=== PATIENT | female | born 1950 | race Caucasian/White ===

== ENCOUNTER → 2018-05-05 13:59 | Outpatient (CLI) | payer OTHER, MEDICARE, SELFPAY ==
--- NOTE | 2018-05-05 | DI.RAD.S_ITS ---
PROCEDURE: XR HIP W PEL IF DONE RT 2V INDICATIONS: CHRONIC PAIN RIGHT KNEE TECHNIQUE: AP pelvis with lateral view(s) of the right hip(s). COMPARISON: None. FINDINGS: Bones: No fractures or dislocations. Lower lumbar degenerative disease. Mild bilateral hip joint degeneration. Pelvic ring appears intact. No suspicious bony lesions. Soft tissues: The visualized bowel gas pattern is normal. No suspicious soft tissue calcifications. IMPRESSION: Mild bilateral hip degeneration. Lower lumbar degenerative disc disease. Dictated by: Roscoe Jara M.D. on 05/05/2018 at 16:04 Approved by: Roscoe Jara M.D. on 05/05/2018 at 16:06
--- NOTE | 2018-05-05 | DI.RAD.S_ITS ---
PROCEDURE: XR KNEE RT 3V INDICATIONS: R KNEE PAIN TECHNIQUE: 3 views of the knee were acquired. COMPARISON: None. FINDINGS: Bones: No fractures or dislocations. No suspicious bony lesions. Superior patellar spurring. Diffuse osteophyte formation and moderate narrowing of the medial joint space. Soft tissues: No joint effusion. No suspicious soft tissue calcifications. IMPRESSION: Moderate right knee joint degeneration Dictated by: Roscoe Jara M.D. on 05/05/2018 at 16:06 Approved by: Roscoe Jara M.D. on 05/05/2018 at 16:11
--- NOTE | 2018-05-05 | DI.RAD.S_ITS ---
PROCEDURE: XR SHOULDER RT MIN 2V INDICATIONS: CHRONIC RIGHT SHOULDER PAIN TECHNIQUE: 3 views of the shoulder were acquired. COMPARISON: None. FINDINGS: Bones: No fractures or dislocations. No suspicious bony lesions. Visualized ribs appear intact. Severe AC joint degeneration. There is glenohumeral degenerative spurring Soft tissues: No suspicious soft tissue calcifications. IMPRESSION: Right shoulder joint degeneration Dictated by: Roscoe Jara M.D. on 05/05/2018 at 15:57 Approved by: Roscoe Jara M.D. on 05/05/2018 at 16:03
== END ==
PROVIDERS: Family Provider Family Medicine; PCP Family Medicine; Visit Provider Family Medicine
DX: M25.511 Pain in right shoulder (principal); M25.561 Pain in right knee; M19.011 Primary osteoarthritis, right shoulder; G89.29 Other chronic pain; M16.0 Bilateral primary osteoarthritis of hip; M51.36 Other intervertebral disc degeneration, lumbar region; M17.11 Unilateral primary osteoarthritis, right knee
CPT/HCPCS: 73030; 73502; 73562

== ENCOUNTER 2018-08-07 09:21 | Emergency (ER) | payer OTHER, MEDICARE, SELFPAY ==
[2018-08-07 09:30] VITALS: BP 161/80; PULSE 60; RESP 18; TEMP 35.9; O2SAT 97; BMI 30.9
--- NOTE | 2018-08-07 10:41 | DI.RAD.S_ITS ---
PROCEDURE: XR CHEST 2V INDICATIONS: right rib pain, fall concern for fracture rib 8-9 range TECHNIQUE: 2 views of the chest were acquired. COMPARISON: None. FINDINGS: Surgical changes and devices: None. Lungs and pleura: Lungs are clear. No pleural effusions or pneumothorax. Mediastinum: Mediastinal contours are normal. Heart size is normal. Bones and chest wall: No suspicious bony abnormalities. Soft tissues appear unremarkable. IMPRESSION: Normal chest. Dictated by: Lori Agustin M.D. on 08/07/2018 at 12:11 Approved by: Lori Agustin M.D. on 08/07/2018 at 12:12
--- NOTE | 2018-08-07 10:41 | ED.FALL ---
HPI - Fall General Chief Complaint: Fall Stated Complaint: FELL RIGHT SIDE PAIN X7 DAYS Time Seen by Provider: 08/07/18 10:31 Source: patient and family (Granddaughter) Mode of arrival: ambulatory Limitations: no limitations History of Present Illness HPI Narrative: This is a 68-year-old female who states that about a week ago she was outside feeding her chickens when she slipped on some rain mixed with snow. Patient states she slipped backwards and fell onto her right side. She sort of scraped her arm against the [place]. Patient states she did hit her head, she has not had any neck or back pain. She does have some bruising and a little bit of puffiness on her right lateral rib area. Patient states she still pretty tender particularly with movement. She states her arm is bruised up but no other injuries. She is able to move it but raising her arm twisting bending or moving her chest in any way is uncomfortable. She tried to follow up with the physicians on [facility] where she lives but they were unable to follow with her. She cut the [place] over here today for evaluation. 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 She has been able to continue these activities. 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 She takes levothyroxine daily. She states she does not take an aspirin or any blood thinners daily. Related Data Home Medications Medication Instructions Recorded Confirmed ASPIRIN CHEW - 324 mg PO Q DAY #0 04/03/06 (ASPIRIN) MULTIVITAMIN (Multivitamin 0 PO * [place] DOSE/FREQUENCY #0 04/03/06 -) [BP MED] #0 04/11/16 levothyroxine 150 mcg PO QDAY #0 04/11/16 Allergies Allergy/AdvReac Type Severity Reaction Status Date / Time Penicillins [PENICILLINS] Allergy Severe STOPS Unverified 09/30/17 11:50 BREATHING Review of Systems Review of Systems ROS Unobtainable: All systems reviewed & are unremarkable except as noted in HPI and below Constitutional Denies headache(s) ENT Ears, Nose, Mouth, and Throat: Denies headache(s) and Denies neck pain Cardiovascular Reports chest pain (right lateral rib pain), Denies syncope, Denies edema, Denies dyspnea and Denies dyspnea on exertion Respiratory Denies chest congestion, Denies hemoptysis, Denies excessive phlegm production, Reports pain on inspiration (with very deep), Reports pain with cough, Denies dyspnea, Denies dyspnea on exertion and Denies wheezing Gastrointestinal Gastrointestinal: Denies abdominal pain, Denies change in bowel habits, Denies diarrhea, Denies nausea and Denies vomiting Musculoskeletal Denies back pain, Denies muscle weakness, Denies neck pain, Denies numbness, Denies tingling and Reports other Integumentary/Breasts Reports unusual bruising (arm) Neurologic Denies syncope, Denies headache(s), Denies numbness, Denies tingling and Denies other (LOC) Allergic/Immunologic Denies wheezing Exam Narrative Exam Narrative: GEN: Patient appears in mild distress. With movement HEAD: No evidence of trauma, no raccoon/Jang sign. NECK: Nontender, painless range of motion, trachea midline Negative Nexus criteria, there is no mid line tenderness, distracting injury, altered mental status, neuro deficit, recent EtOH. EYES: PERRLA, EOMI ENT: External inspection normal, trachea is midline, airway is normal and with normal occlusion, No bony tenderness RESP: Chest, patient has patient has point tenderness on her right lateral ribs 8-9 region, there is a corresponding area of ecchymosis that is approximately 3 cm in size, no hematoma is noted. Patient has a small secondary area of ecchymosis on the posterior back about 2 cm higher that is about 2 cm in size. Slightly tender but not to the same extent. and has symmetric movement,breath sounds are normal no crackles, wheezes or rales, patient is able to sit up in bed without much discomfort. CVS: Heart sounds are normal, no murmur noted, No JVD. ABG/GI: Nontender, soft, normal bowel sounds, no distention, no organomegaly NEURO: Oriented AOx3, neuro is grossly intact, sensation and motor is normal all 4 extremities moving, cranial nerves II through XII are intact, GCS is 15 PSYCH: Normal mood and affect SKIN: Intact, warm and dry, no crepitus and without decubitus BACK: No CVA tenderness, no vertebral tenderness, no step-off's, no crepitus EXT: Atraumatic, hips are nontender, no pedal edema, normal color and temperature, normal range of motion of extremities with normal tendon exam, 2+ pulses in all four extremities Initial Vital Signs Initial Vital Signs: Vital Signs Temperature 96.7 F L 08/07/18 09:30 Pulse Rate 60 08/07/18 09:30 Respiratory Rate 18 08/07/18 09:30 Blood Pressure 161/80 H 08/07/18 09:30 Pulse Oximetry 97 08/07/18 09:30 [facility] Medical History Hypothyroid (Acute) Social History Smoking Status: Never smoker Social History details: Lives on [facility], primary caregiver [facility] Smoking Status: Never smoker Course Orders Ordered: ED Orders 08/07/18 10:41 XR chest 2V Stat Vital Signs - 8 hr 08/07/18 09:30 08/07/18 11:23 Temperature 96.7 F L Pulse Rate 60 56 L Respiratory Rate 18 20 Blood Pressure 161/80 H 162/70 H Pulse Oximetry 97 98 MDM - Fall Imaging Data Chest x-ray: Attestation: I personally reviewed and interpreted this imaging study as follows: My impression: no acute fracture noted, no pnuemothorax. [facility] Narrative Medical decision making narrative: Patient does not have clear fracture noted on x-ray but she may have a nondisplaced rib fracture which is my suspicion with her point tenderness and localized breathing. Patient seems to be handling this well she is quite active. Was offered incentive spirometry but she defers at this time. Patient plans to use OTC pain medications. Discharge Plan Departure Patient Disposition: Home Clinical Impression: Closed rib fracture Discharge Date/Time: 08/07/18 11:23 Interventions: ED Discharge Assessment Last Done: 08/07/18 11:23 Instructions: DI for Rib Fracture Activity Restrictions/Additional Instructions: Follow up with primary care if her symptoms are not improving over the next several weeks. You may continue to take ibuprofen and/or Tylenol as needed for pain. You may take up to a 1000 mg of Tylenol every 8 hr as needed. You may take ibuprofen with this or instead of up to 600 mg every 6 hr. Use incentive spirometer hourly while awake. Return to the emergency department for fevers, new difficulty with breathing, rapidly spreading swelling or bruising on the chest, passing out, lightheadedness, persistent vomiting, sudden severe headaches or other new or concerning symptoms. Prescriptions: No Action ASPIRIN CHEW - (ASPIRIN) 324 mg PO Q DAY Qty: 0 RF: 0 MULTIVITAMIN (Multivitamin -) PO * DOSE/FREQUENCY Qty: 0 RF: 0 levothyroxine 112 MCG tablet 150 mcg PO QDAY Qty: 0 RF: 0 [BP MED] Qty: 0 RF: 0 Referrals: Daniel Kwok MD [Primary Care Provider] -
--- NOTE | 2018-08-07 10:48 | ED_ITS ---
HPI - Fall General Chief Complaint: Fall Stated Complaint: FELL RIGHT SIDE PAIN X7 DAYS Time Seen by Provider: 08/07/18 10:31 Source: patient and family (Granddaughter) Mode of arrival: ambulatory Limitations: no limitations History of Present Illness HPI Narrative: This is a 68-year-old female who states that about a week ago she was outside feeding her chickens when she slipped on some rain mixed with snow. Patient states she slipped backwards and fell onto her right side. She sort of scraped her arm against the [place]. Patient states she did hit her head, she has not had any neck or back pain. She does have some bruising and a little bit of puffiness on her right lateral rib area. Patient states she still pretty tender particularly with movement. She states her arm is bruised up but no other injuries. She is able to move it but raising her arm twisting bending or moving her chest in any way is uncomfortable. She tried to follow up with the physicians on [facility] where she lives but they were unable to follow with her. She cut the [place] over here today for evaluation. 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 She has been able to continue these activities. 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 She takes levothyroxine daily. She states she does not take an aspirin or any blood thinners daily. Related Data Home Medications Medication Instructions Recorded Confirmed ASPIRIN CHEW - 324 mg PO Q DAY #0 04/03/06 (ASPIRIN) MULTIVITAMIN (Multivitamin 0 PO * [place] DOSE/FREQUENCY #0 04/03/06 -) [BP MED] #0 04/11/16 levothyroxine 150 mcg PO QDAY #0 04/11/16 Allergies Allergy/AdvReac Type Severity Reaction Status Date / Time Penicillins [PENICILLINS] Allergy Severe STOPS Unverified 09/30/17 11:50 BREATHING Review of Systems Review of Systems ROS Unobtainable: All systems reviewed & are unremarkable except as noted in HPI and below Constitutional Denies headache(s) ENT Ears, Nose, Mouth, and Throat: Denies headache(s) and Denies neck pain Cardiovascular Reports chest pain (right lateral rib pain), Denies syncope, Denies edema, [place] es dyspnea and Denies dyspnea on exertion Respiratory Denies chest congestion, Denies hemoptysis, Denies excessive phlegm production, Reports pain on inspiration (with very deep), Reports pain with cough, Denies dyspnea, Denies dyspnea on exertion and Denies wheezing Gastrointestinal Gastrointestinal: Denies abdominal pain, Denies change in bowel habits, Denies diarrhea, Denies nausea and Denies vomiting Musculoskeletal Denies back pain, Denies muscle weakness, Denies neck pain, Denies numbness, Denies tingling and Reports other Integumentary/Breasts Reports unusual bruising (arm) Neurologic Denies syncope, Denies headache(s), Denies numbness, Denies tingling and Denies other (LOC) Allergic/Immunologic Denies wheezing Exam Narrative Exam Narrative: GEN: Patient appears in mild distress. With movement HEAD: No evidence of trauma, no raccoon/Jang sign. NECK: Nontender, painless range of motion, trachea midline Negative Nexus criteria, there is no mid line tenderness, distracting injury, altered mental status, neuro deficit, recent EtOH. EYES: PERRLA, EOMI ENT: External inspection normal, trachea is midline, airway is normal and with normal occlusion, No bony tenderness RESP: Chest, patient has patient has point tenderness on her right lateral ribs 8-9 region, there is a corresponding area of ecchymosis that is approximately 3 cm in size, no hematoma is noted. Patient has a small secondary area of ecchymosis on the posterior back about 2 cm higher that is about 2 cm in size. Slightly tender but not to the same extent. and has symmetric movement,breath sounds are normal no crackles, wheezes or rales, patient is able to sit up in bed without much discomfort. CVS: Heart sounds are normal, no murmur noted, No JVD. ABG/GI: Nontender, soft, normal bowel sounds, no distention, no organomegaly NEURO: Oriented AOx3, neuro is grossly intact, sensation and motor is normal all 4 extremities moving, cranial nerves II through XII are intact, GCS is 15 PSYCH: Normal mood and affect SKIN: Intact, warm and dry, no crepitus and without decubitus BACK: No CVA tenderness, no vertebral tenderness, no step-off's, no crepitus EXT: Atraumatic, hips are nontender, no pedal edema, normal color and temperature, normal range of motion of extremities with normal tendon exam, 2+ pulses in all four extremities Initial Vital Signs Initial Vital Signs: Vital Signs Temperature 96.7 F L 08/07/18 09:30 Pulse Rate 60 08/07/18 09:30 Respiratory Rate 18 08/07/18 09:30 Blood Pressure 161/80 H 08/07/18 09:30 Pulse Oximetry 97 08/07/18 09:30 [facility] Medical History Hypothyroid (Acute) Social History Smoking Status: Never smoker Social History details: [facility], [facility] Smoking Status: Never smoker Course Orders Ordered: ED Orders 08/07/18 10:41 XR chest 2V Stat Vital Signs - 8 hr 08/07/18 09:30 08/07/18 11:23 Temperature 96.7 F L Pulse Rate 60 56 L Respiratory Rate 18 20 Blood Pressure 161/80 H 162/70 H Pulse Oximetry 97 98 MDM - Fall Imaging Data Chest x-ray: Attestation: I personally reviewed and interpreted this imaging study as follows: My impression: no acute fracture noted, no pnuemothorax. [facility] Narrative Medical decision making narrative: Patient does not have clear fracture noted on x-ray but she may have a nondisplaced rib fracture which is my suspicion with her point tenderness and localized breathing. Patient seems to be handling this well she is quite active. Was offered incentive spirometry but she defers at this time. Patient plans to use OTC pain medications. Discharge Plan Departure Patient Disposition: Home Clinical Impression: Closed rib fracture Discharge Date/Time: 08/07/18 11:23 Interventions: ED Discharge Assessment Last Done: 08/07/18 11:23 Instructions: DI for Rib Fracture Activity Restrictions/Additional Instructions: Follow up with primary care if her symptoms are not improving over the next several weeks. You may continue to take ibuprofen and/or Tylenol as needed for pain. You may take up to a 1000 mg of Tylenol every 8 hr as needed. You may take ibuprofen with this or instead of up to 600 mg every 6 hr. Use incentive spirometer hourly while awake. Return to the emergency department for fevers, new difficulty with breathing, rapidly spreading swelling or bruising on the chest, passing out, lightheadedness, persistent vomiting, sudden severe headaches or other new or concerning symptoms. Prescriptions: No Action ASPIRIN CHEW - (ASPIRIN) 324 mg PO Q DAY Qty: 0 RF: 0 MULTIVITAMIN (Multivitamin -) PO * DOSE/FREQUENCY Qty: 0 RF: 0 levothyroxine 112 MCG tablet 150 mcg PO QDAY Qty: 0 RF: 0 [BP MED] Qty: 0 RF: 0 Referrals: Daniel Kwok MD [Primary Care Provider] -
[2018-08-07 11:23] VITALS: BP 162/70; PULSE 56; RESP 20; O2SAT 98
== END 2018-08-07 11:23 | disposition home or self-care (01) ==
PROVIDERS: Emergency Provider Emergency Medicine; Family Provider Family Medicine; PCP Family Medicine
DX: S22.31XA Fracture of one rib, right side, initial encounter for closed fracture (principal); W01.0XXA Fall on same level from slipping, tripping and stumbling without subsequent striking against object, initial encounter
CPT/HCPCS: 71046; 99282; 99283

== ENCOUNTER → 2020-08-01 17:29 | Outpatient (CLI) | payer MEDICARE, OTHER, SELFPAY ==
--- NOTE | 2020-08-01 | DI.MRI.S_ITS ---
PROCEDURE: MR TMJ WO CON INDICATIONS: JAW PAIN TECHNIQUE: Axial T1 spin echo, coronal and sagittal PD fast spin echo through the temporomandibular joints, in both the closed- and open-mouth positions. COMPARISON: None. FINDINGS: Image quality: Excellent. Right: Joint is normally aligned on closed and open-mouth positioning. The articular disc demonstrates a mild amount of irregularity with degenerative signal. On the open mouth position, the disc appropriately captures. Minimal osteophyte formation can be seen of the mandibular condyle. No carmelita bony erosions are detected. Left: Joint is normally aligned on closed and open-mouth positioning. The articular disc demonstrates a mild to moderate amount of irregularity, with degenerative signal. On the open-mouth positioning, the articular disc appropriately captures. No carmelita bony erosions are seen. Osteophytes can be seen of the mandibular condyle. IMPRESSION: Degenerative changes can be seen of the temporomandibular joints, left worse than right. Dictated by: Bennett Crowe M.D. on 08/02/2020 at 8:52 Approved by: Bennett Crowe M.D. on 08/02/2020 at 8:58
== END ==
PROVIDERS: Family Provider Family Medicine; PCP Family Medicine; Referring Provider Family Medicine; Visit Provider Family Medicine
DX: M26.622 Arthralgia of left temporomandibular joint (principal); R93.0 Abnormal findings on diagnostic imaging of skull and head, not elsewhere classified
CPT/HCPCS: 70336

== ENCOUNTER → 2021-04-24 12:36 | Outpatient (CLI) | payer OTHER, SELFPAY ==
--- NOTE | 2021-04-24 12:38 | DI.MRI.S_ITS ---
PROCEDURE: MR WRIST LT WO CON INDICATIONS: Pain in left wrist TECHNIQUE: Noncontrast coronal proton density fast spin echo and T2 fast spin echo with fat saturation; coronal 3-D gradient echo, axial T1 spin echo and T2 fast spin echo with fat saturation, sagittal T1 spin echo through the wrist. COMPARISON: None. FINDINGS: Image quality: Some images are degraded by motion artifact. Bones and cartilage: No distinct fracture line is appreciated. T2 hyperintense/T1 hypointense signal is seen in the lunate and ulna, which may reflect impaction injury. A smaller focus of T2 hyperintense signal is seen in the proximal pole of the scaphoid. Carpal ligaments: The scapholunate and lunotriquetral ligaments appear intact. In the absence of intra-articular contrast, the extrinsic carpal ligaments are not well identified. Triangular fibrocartilage complex: Peripheral T2 hyperintense and intermediate intrasubstance signal within the TFCC, compatible with traumatic/degenerative tears. The extensor carpi ulnaris tendon is normal in location and morphology. Tendons and soft tissues: Small amount of fluid within the carpal tunnel compartment. The median nerve appears normal. The ulnar nerve appears normal within Guyon's canal. Fluid about the extensor pollicis longus and extensor carpi radialis brevis tendons, which is non circumferential. A 4.3 x 5.1 x 3.4 mm T2 hyperintense lesion is seen along the palmar aspect of the distal radius, which may reflect a ganglion. IMPRESSION: 1. Edema in the ulna and lunate, concerning for impaction injury. 2. Abnormal signal in the TFCC, most consistent with traumatic/degenerative tears. 3. Subcentimeter cystic lesion along the palmar aspect of the distal radius, which may reflect a ganglion. 4. Small amount of fluid in the carpal tunnel compartment, which is nonspecific. Dictated by: Ata Perry M.D. on 04/24/2021 at 16:22 Approved by: Ata Perry M.D. on 04/24/2021 at 16:50
== END ==
PROVIDERS: Family Provider Family Medicine; PCP Family Medicine; Referring Provider Orthopaedic Surgery; Visit Provider Orthopaedic Surgery
DX: M25.532 Pain in left wrist (principal)
CPT/HCPCS: 73221

== ENCOUNTER → 2021-08-28 09:29 | Outpatient (CLI) | payer MEDICARE, OTHER, SELFPAY ==
--- NOTE | 2021-08-28 09:34 | DI.RAD.S_ITS ---
PROCEDURE: XR FOOT LT MIN 3V INDICATIONS: PAIN IN LEFT FOOT TECHNIQUE: 3 views of the foot were acquired. COMPARISON: None. FINDINGS: Bones: No fractures or dislocations. No suspicious bony lesions. Moderate midfoot osteoarthritis. Plantar calcaneal bone spur. Soft tissues: No tibiotalar joint effusion. Achilles tendon appears normal. IMPRESSION: 1. Osteoarthritis. 2. Calcaneal bone spur. 3. No fracture. No acute osseous lesion. If symptoms and/or clinical suspicion for pathology persists, further assessment with repeat radiographs (7-10 days) or advanced imaging (e.g. CT, MRI or bone scan) should be considered. Dictated by: Riya Chavez MD, PhD on 08/28/2021 at 11:30 Approved by: Riya Chavez MD, PhD on 08/28/2021 at 11:31
== END ==
PROVIDERS: Family Provider Family Medicine; PCP Family Medicine; Referring Provider Family Medicine; Visit Provider Family Medicine
DX: M19.072 Primary osteoarthritis, left ankle and foot (principal); M77.32 Calcaneal spur, left foot; M79.672 Pain in left foot
CPT/HCPCS: 73630

== ENCOUNTER → 2021-11-20 08:57 | Outpatient (CLI) | payer MEDICARE, OTHER, SELFPAY ==
--- NOTE | 2021-11-20 | DI.MRI.S_ITS ---
PROCEDURE: MR ANKLE LT WO CON INDICATIONS: Contusion of left foot, initial encounter TECHNIQUE: Noncontrast sagittal T1 spin echo and T2 fast spin echo with fat saturation, axial proton density fast spin echo and T2 fast spin echo with fat saturation, coronal T1 spin echo and T2 fast spin echo with fat saturation through the ankle/hindfoot. COMPARISON: None. FINDINGS: Image quality: Excellent. Bones and joints: Moderate osteoarthritic changes throughout midfoot and hindfoot joints are seen particularly involving 2nd and 3rd TMT joints and navicular cuneiform joints. Extensive marrow edema involving 2nd and 3rd metatarsal bases, middle and medial cuneiform and navicular bone is seen without discrete fracture line. Edema involving proximal portion of the cuboid is also noted adjacent to calcaneocuboid joint. Well-defined plantar calcaneal enthesophyte is seen. Small tibiotalar and subtalar joint effusion is noted. No osteochondral injury of talar dome. No evidence of hindfoot coalition. Medial structures: The posterior tibialis appears thickened with intrasubstance T2 hyperintense signal at the level of talonavicular joint and navicular bone. The flexor digitorum longus, and flexor hallucis longus tendons are intact. The posterior tibial neurovascular bundle appears normal within the tarsal tunnel, without extrinsic mass effect. The deep layer (anterior and posterior tibiotalar ligaments) and superficial layer (tibionavicular, tibiospring, and tibiocalcaneal ligaments) of the deltoid ligament appear normal. The spring ligament components (superomedial calcaneonavicular, medioplantar oblique calcaneonavicular, and inferoplantar longitudinal ligaments) are intact. Lateral structures: The anterior talofibular, calcaneofibular, and posterior talofibular ligaments appear slightly attenuated with intrasubstance T2 hyperintense signal suggestive of low-grade sprain/partial-thickness tear. More superiorly, the anterior and posterior tibiofibular ligaments appear intact, as is the intermalleolar ligament. The tibiofibular syndesmosis is normal in width at 2 mm or less. The peroneus longus and brevis tendons demonstrate normal location and morphology. Adjacent bony peroneal tubercle and retrotrochlear prominence are normal in size. The sinus tarsi demonstrates normal fatty signal, without edema, fibrosis, or cyst formation. Visualized sinus tarsi components (cervical ligament, interosseous talocalcaneal ligament, roots of the inferior extensor retinaculum) appear normal. The calcaneonavicular and calcaneocuboid components of the bifurcate ligament appear intact. The dorsal calcaneocuboid ligament appears intact. Anterior structures: The tibialis anterior, extensor hallucis longus, and extensor digitorum longus tendons appear intact. The dorsal talonavicular ligament appears intact. Posterior and plantar structures: Achilles tendon is intact. Thickened medial band of plantar fascia at its calcaneal insertion is seen suggestive of low-grade plantar fasciitis. No abductor digiti quinti muscle atrophy to suggest Lambert neuropathy. IMPRESSION: 1. Moderate midfoot and hindfoot joint osteoarthritis. Extensive marrow edema involving 2nd and 3rd metatarsal base, middle and medial cuneiform, navicular bone and proximal portion of cuboid without definite fracture line. Finding likely represent changes secondary to osteoarthritis in these areas versus stress related changes versus bony contusion. 2. Suggestion of posterior tibialis tendinosis and low-grade intrasubstance partial-thickness tear at the level of talonavicular joint and navicular bone. 3. Low-grade anterior and posterior talofibular ligament and calcaneofibular ligament sprain/intrasubstance partial-thickness tear. 4. Well-defined plantar calcaneal enthesophyte with mildly thickened plantar fascia at its calcaneal insertion suggestive of low-grade plantar fasciitis. Dictated by: Car Vidal M.D. on 11/20/2021 at 12:28 Approved by: Car Vidal M.D. on 11/20/2021 at 12:41
== END ==
PROVIDERS: Family Provider Family Medicine; PCP Family Medicine; Referring Provider Podiatrist; Visit Provider Podiatrist
DX: S90.32XA Contusion of left foot, initial encounter (principal); S93.492A Sprain of other ligament of left ankle, initial encounter; S93.411A Sprain of calcaneofibular ligament of right ankle, initial encounter; M19.072 Primary osteoarthritis, left ankle and foot; M77.32 Calcaneal spur, left foot; X58.XXXA Exposure to other specified factors, initial encounter
CPT/HCPCS: 73721

== ENCOUNTER → 2022-06-04 15:30 | Outpatient (CLI) | payer MEDICARE, OTHER, SELFPAY ==
[2022-06-04 16:34] LABS: BUN Creatinine Ratio 26.9 (6-22); Blood Urea Nitrogen 14 mg/dL (7-17); Calcium 9.2 mg/dL (8.4-10.2); Carbon Dioxide 29 mmol/L (22-32); Chloride 102 mmol/L (98-107); Estimated Glomerular Filt Rate > 60 mL/min (>60); Glucose 111 mg/dL (80-110); HEMOLYSIS < 15 (0-50); Potassium 3.7 mmol/L (3.4-5.1); Sodium 138 mmol/L (137-145)
== END ==
PROVIDERS: Family Provider Family Medicine; PCP Family Medicine; Referring Provider Podiatrist; Visit Provider Podiatrist
DX: Z01.818 Encounter for other preprocedural examination (principal); Z01.812 Encounter for preprocedural laboratory examination
CPT/HCPCS: 36415; 80048; 93005; 93010

== ENCOUNTER 2022-06-13 10:39 | Day surgery (SDC) | payer MEDICARE, OTHER, SELFPAY ==
[2022-06-11 14:42] VITALS: BMI 29.8
[2022-06-13] VITALS (7 sets, daily range): BP systolic 122–161; BP diastolic 67–86; PULSE 51–66; RESP 14–20; TEMP 36.2–36.7; O2SAT 96–99; BMI 29.8
[2022-06-13] MEDS: LACTATED RINGERS 1,000 ML 42 ML IV (14:29)
[2022-06-13 15:02] LABS: COVID19 -Nasal RAPID Negative (Negative)
--- NOTE | 2022-06-13 15:05 | P.OP_ITS ---
Operative Date/Time/Diagnoses Date of procedure: 06/13/22 Time of procedure: 15:06 Pre-op diagnosis: Left midfoot painful arthritis Post-op diagnosis: same Procedure & Clinicians Procedure: Left midfoot exostectomy Same procedure as scheduled: Yes Indications: 71-year-old female with painful arthritis with spurring to the left mid foot. Conservative measures have failed to alleviate her pain and she wished to have surgical intervention at this time. We spoke the risks, potential complications, alternatives, and expected outcomes. Consent was signed, no contraindications to the procedure at this time. Surgeon: Laura Patrick Click Yes if Unassisted: Yes Anesthesia Type: General Operative Notes Closure Type: primary Specimen(s): none sent Estimated Blood Loss (mL): 20 Blood products transfused: none Tourniquet time (min): 20 Procedure in detail: The patient was brought to the operating room and placed on the operating table in the supine position. The tourniquet was placed about the left thigh. Well- padded, appropriately aligned. After induction of anesthesia the left foot and ankle were prepped and draped in the usual aseptic manner. The tourniquet was inflated. Next, an incision was made dorsally at the apex of the prominence on the dorsal foot which was over the intermediate and lateral cuneiforms against the navicular. The incision was deepened through subcutaneous tissues being careful to identify and retract all vital neural and vascular structures. All bleeders were cauterized and ligated as necessary. Significant degenerative changes were noted with spurring and very narrow joint spaces. This was resected with a rongeur as well as osteotome and then smoothed with a manual rasp. This was done to that region and from that location I was not able to note any significant further enlargement or spurring present to reduce. The area was irrigated with copious amounts of normal sterile saline. Tourniquet was deflated and a prompt hyperemic response was seen to the foot. Subcutaneous closure was performed using Vicryl and nylon was used to close the skin. A sterile, lightly compressive dressing was placed on the foot and she did not bring her postoperative shoe with her but we were able to place her in an Diego wrap and transfer her to the PACU with vital signs stable and vascular status intact. Complications: none Post-operative Condition: stable Disposition: PACU Plan for aftercare: Following a period of postoperative monitoring, the patient will be discharged to home on written and oral postoperative instructions including keeping the dressing dry and intact, no greater than 50% weight to the surgical foot, icing and elevating the foot when seated home. DVT prevention techniques have been reviewed. For the 1st postoperative visit the dressing will be changed and close to the 3rd postoperative week we will likely remove the sutures.
--- NOTE | 2022-06-13 15:05 | PM.PREOP ---
Pre-operative Note COVID-19 COVID-19 status: Negative Result date/Date tested (Pos, Neg/Pending): 06/13/22 Interval Note History & Physical reviewed/Exam performed by Physician: Yes Changes to H&P: No
[2022-06-13] MEDS: CLINDAMYCIN 600 MG/50 ML PIGGYBACK 50 MG IV (15:24)
[2022-06-13] MEDS: BUPIVACAINE 0.5% W/ EPI (PF) 30 ML VIAL 10 ML INJ (15:44)
--- NOTE | 2022-06-13 15:45 | SUR.OPER ---
Supine on padded OR bed, head on pillow, arms secured on padded arm boards at <90 degrees abduction, legs uncrossed, safety belt at abdomen, tape over blanket over lower leg right, gel bump left hip.
== END 2022-06-13 17:15 | disposition home or self-care (01) ==
PROVIDERS: Family Provider Family Medicine; PCP Family Medicine; Referring Provider Podiatrist; Visit Provider Podiatrist
PROC: (CPT 28112; principal; 2022-06-13 15:15)
DX: M19.072 Primary osteoarthritis, left ankle and foot (principal); Z20.822 Contact with and (suspected) exposure to COVID-19; S90.32XA Contusion of left foot, initial encounter
CPT/HCPCS: 28112; 87635; J1100; J1885; J2405; J2704; J3010

== ENCOUNTER → 2022-07-10 15:00 | Outpatient (CLI) | payer MEDICARE, OTHER, SELFPAY ==
--- NOTE | 2022-07-10 | DI.US.S_ITS ---
PROCEDURE: US PERIPH VENOUS LOW EXTREM LT INDICATIONS: LEFT LOWER LEG SWELLING TECHNIQUE: Real-time imaging, as well as color and pulse Doppler interrogation, were performed of the lower extremity deep veins from the inguinal ligament to the popliteal fossa. COMPARISON: None. FINDINGS: The common femoral, femoral and popliteal veins are normally compressible, and free of intraluminal thrombus. Color and pulse Doppler demonstrate normal phasic intraluminal flow. There is normal augmentation response to distal compression maneuver. IMPRESSION: No left lower extremity DVT. Dictated by: Darren Redmond M.D. on 07/10/2022 at 16:55 Approved by: Darren Redmond M.D. on 07/10/2022 at 16:56
== END ==
PROVIDERS: Family Provider Family Medicine; PCP Family Medicine; Referring Provider Podiatrist; Visit Provider Podiatrist
DX: R60.0 Localized edema (principal)
CPT/HCPCS: 93971

== ENCOUNTER → 2022-09-24 10:48 | Outpatient (CLI) | payer MEDICARE, OTHER, SELFPAY ==
--- NOTE | 2022-09-24 | DI.MRI.S_ITS ---
PROCEDURE: MR ANKLE LT WO CON INDICATIONS: Primary osteoarthritis, unspecified ankle TECHNIQUE: Noncontrast sagittal T1 spin echo and T2 fast spin echo with fat saturation, axial proton density fast spin echo and T2 fast spin echo with fat saturation, coronal T1 spin echo and T2 fast spin echo with fat saturation through the ankle/hindfoot. COMPARISON: [facility] [place], CR, XR FOOT 3+ VIEWS LEFT, 02/05/2022, 12:18. [facility] [place], [place], XR ANKLE 1 OR 2 VIEWS WEIGHT BEARING LEFT, 08/28/2022, 11:58. [facility] [place], CR, XR FOOT 3 VIEWS WEIGHT BEARING LEFT, 08/28/2022, 11:58. [facility], MR, MR ANKLE LT WO CON, 11/20/2021, 9:15. FINDINGS: Image quality: Excellent. Bones and joints: Mild osseous edema is seen in the distal fibula near the anterior talofibular ligament attachment. bula No hindfoot coalitions. No osteochondral injuries of the talar dome. Extensive degenerative changes are again seen at the talonavicular, navicular cuneiform, and 2nd and 3rd tarsometatarsal joints with associated osseous edema, not significantly changed in extent when compared to the MRI from 11/20/2021. There is decreased edema within the cuboid. Nonspecific subcutaneous soft tissue edema is seen surrounding the ankle. Medial structures: The deep and superficial layers of the deltoid ligament appear intact. The spring ligament components are intact. The posterior tibialis, flexor digitorum longus, and flexor hallucis longus tendons are intact. The posterior tibial neurovascular bundle appears normal within the tarsal tunnel, without extrinsic mass effect. Lateral structures: Anterior talofibular ligament appears indistinct, compatible with a grade 2-3 sprain, which appears new or progressed when compared to the prior MRI from 11/20/2021. There is mild adjacent soft tissue edema. The calcaneofibular ligament also appears indistinct near its fibular attachment. The posterior talofibular ligament is intact. The anterior and posterior tibiofibular ligaments appear intact. The peroneus longus and brevis tendons demonstrate mild tenosynovitis and tendinosis. There is partial effacement of the normal fat in the sinus tarsi. Anterior structures: The tibialis anterior, extensor hallucis longus, and extensor digitorum longus tendons appear intact. The dorsal talonavicular ligament appears intact. Posterior and plantar structures: Mild Achilles tendinosis. Thickening of the proximal plantar fascia is seen without surrounding edema or fascial tearing. Fatty infiltration of the abductor digiti minimi muscle is most likely related to chronic denervation changes/Lambert neuropathy. IMPRESSION: 1. Mild osseous edema at the distal fibular tip and indistinct appearance of the adjacent anterior talofibular ligament and calcaneofibular ligament are suspicious for a possible recent avulsion injury and grade 2-3 ligamentous sprains. 2. Degenerative changes throughout the medial midfoot again seen with somewhat prominent osseous edema that overall appears similar when compared to the MRI from 11/20/2021. Osseous contusions, developing Charcot neuropathy, or stress reaction are also possible. 3. Mild peroneus brevis and longus tendinosis and tenosynovitis, which may be reactive. 4. Mild Achilles tendinosis. 5. Mild chronic proximal plantar fasciitis. 6. Fatty infiltration of the abductor digiti minimi muscle is most likely related to chronic denervation changes/Lambert neuropathy. Approved by: Harris De La Torre M.D. on 09/24/2022 at 16:23
--- NOTE | 2022-09-24 | DI.MG.S_ITS ---
BILATERAL DIGITAL SCREENING MAMMOGRAM 3D/2D WITH CAD: 09/24/2022 CLINICAL: Baseline exam. By default. No prior exams were available for comparison. There are scattered areas of fibroglandular density in both breasts (category b / 25%-50% glandular tissue). Current study was also evaluated with a Computer Aided Detection (CAD) system. No significant masses, calcifications, or other findings are seen in either breast. IMPRESSION: NEGATIVE There is no mammographic evidence of malignancy. A 1 year screening mammogram is recommended. Based on the Tyrer Cuzick model (a risk assessment model) the patient's lifetime risk is 5.1% and her 10 year risk is 4.2%. According to the ACR, ACS, and NCCN guidelines, an annual breast MRI exam along with mammogram is recommended if the patient's lifetime risk is 20% or greater. This exam was interpreted at Station ID: [id number]. NOTE: For mammograms, a report in lay terms will be sent to the patient. Approximately 15% of breast malignancies will not be visualized mammographically. In the management of a palpable breast mass, a negative mammogram must not discourage biopsy of a clinically suspicious lesion. Electronically Signed By: Tunde denney/rebekah:09/24/2022 12:39:14 letter sent: Normal Exam ACR BI-RADS Category 1: Negative [id number]
--- NOTE | 2022-09-24 12:44 | DI.DEXA.S_ITS ---
Bone Density Report Name: NATHANIEL RODRIGUEZ Age: 72 Sex: Female Ethnicity: White Date of : 1950 Indication: postmenopausal; screening for osteoporosis; Referring Provider: HERBERT LAIRD Study: Bone densitometry was performed. Exam Date: September 24, 2022 Accession number: [id number] Bone Density: Region BMD T-score Z-score Classification AP Spine(L1-L4) 0.956 -0.8 1.5 Normal Femoral Neck (Left) 0.747 -0.9 1.1 Normal Total Hip (Left) 0.846 -0.8 0.9 Normal Femoral Neck (Right) 0.712 -1.2 0.7 Osteopenia Total Hip (Right) 0.775 -1.4 0.3 Osteopenia Total Hip Mean 0.810 -1.1 0.6 Osteopenia World Health Organization criteria for BMD impression classify patients as: Normal (T-score at or above -1.0), Osteopenia (T-score between -1.0 and -2.5), or Osteoporosis (T-score at or below -2.5). 10-year Fracture Risk(1): Major Osteoporotic Fracture 9.7% Hip Fracture 1.4% Reported Risk Factors: [place] (), Neck BMD=0.712, BMI=30.1 (1) FRAX(R) Version 3.08. Fracture probability calculated for an untreated patient. Fracture probability may be lower if the patient has received treatment. Impression: The patient has low bone mass, based on the Right Total Hip T-score. The patient has an estimated ten-year risk of hip fracture of 1.4% and an estimated ten-year risk of major fracture of 9.7%, based on the WHO FRAX algorithm. Discussion: BONE DENSITY IS LOW AT ONE OR MORE SKELETAL SITES. This patient's lowest T-score is low at one or more skeletal sites. It meets the World Health Organization's (WHO) criteria for ?low bone mass? (T-score between -1.0 and -2.5). The patient's 10-year risk of fracture as calculated by FRAX is less than the threshold where pharmacological therapy is recommended by the National Osteoporosis Foundation (NOF). However, all treatment decisions require clinical judgment and consideration of individual patient factors, including patient preferences, comorbidities, previous drug use, risk factors not captured in the FRAX model (e.g., frailty, falls, vitamin D deficiency, increased bone turnover, interval significant decline in bone density) and possible under or overestimation of fracture risk by FRAX. The patient should follow a healthful lifestyle (good nutrition with adequate calcium and vitamin D, and appropriate weight-bearing exercise). Follow-Up: Consider repeating this study in 2 to 3 years to reassess this patient's status, or sooner if there is some new clinical indication. Reported by: XI SELLERS M.D. on 09/24/2022 12:58:00 PM.
== END ==
PROVIDERS: Family Provider Family Medicine; PCP Family Medicine; Referring Provider Family Medicine; Visit Provider Family Medicine
DX: Z12.31 Encounter for screening mammogram for malignant neoplasm of breast (principal); Z78.0 Asymptomatic menopausal state; Z13.820 Encounter for screening for osteoporosis; M85.851 Other specified disorders of bone density and structure, right thigh; M65.872 Other synovitis and tenosynovitis, left ankle and foot; M19.079 Primary osteoarthritis, unspecified ankle and foot; M72.2 Plantar fascial fibromatosis
CPT/HCPCS: 73721; 77063; 77067; 77080

== ENCOUNTER → 2023-01-07 11:02 | Outpatient (CLI) | payer MEDICARE, OTHER, SELFPAY ==
--- NOTE | 2023-01-07 | DI.US.S_ITS ---
PROCEDURE: US PERIP VENOUS LOW EXTREM LT INDICATIONS: SWELLING OF LEG TECHNIQUE: Real-time imaging, as well as color and pulse Doppler interrogation, were performed of the lower extremity deep veins from the inguinal ligament to the popliteal fossa. COMPARISON: [facility], , [facility] VENOUS LOW EXTREM LT, 07/10/2022, 15:21. FINDINGS: The common femoral, femoral and popliteal veins are normally compressible, and free of intraluminal thrombus. Color and pulse Doppler demonstrate normal phasic intraluminal flow. There is normal augmentation response to distal compression maneuver. IMPRESSION: Negative for deep venous thrombosis. Dictated by: Bennett Crowe M.D. on 01/07/2023 at 18:23 Approved by: Bennett Crowe M.D. on 01/07/2023 at 18:23
== END ==
PROVIDERS: Family Provider Family Medicine; PCP Family Medicine; Referring Provider Family Medicine; Visit Provider Family Medicine
DX: R22.42 Localized swelling, mass and lump, left lower limb (principal)
CPT/HCPCS: 93971

== ENCOUNTER 2023-03-20 15:44 | Emergency (ER) | payer MEDICARE, OTHER, SELFPAY ==
[2023-03-20 16:09] VITALS: BP 125/69; PULSE 66; RESP 16; TEMP 36.9; O2SAT 97; BMI 29.2
--- NOTE | 2023-03-20 16:14 | DI.US.S_ITS ---
PROCEDURE: [facility] VENOUS LOW EXTREM LT INDICATIONS: POSTERIOR KNEE SWELLING AND PAIN TECHNIQUE: Real-time imaging, as well as color and pulse Doppler interrogation, were performed of the lower extremity deep veins from the inguinal ligament to the popliteal fossa, with documentation of the visualized calf veins. COMPARISON: [facility], [facility] VENOUS LOW EXTREM LT, 01/07/2023, 11:34. [facility], [facility] VENOUS LOW EXTREM LT, 07/10/2022, 15:21. FINDINGS: The common femoral, femoral, popliteal, and the visualized calf veins are normally compressible, and free of intraluminal thrombus. Color and pulse Doppler demonstrate normal phasic intraluminal flow. There is normal augmentation response to distal compression maneuver. IMPRESSION: No findings of left lower extremity deep venous thrombosis. Dictated by: Chinedu Lara M.D. on 03/20/2023 at 16:43 Approved by: Chinedu Lara M.D. on 03/20/2023 at 16:43
[2023-03-20 17:39] VITALS: PULSE 70
--- NOTE | 2023-03-20 17:41 | ED.EXTPRO ---
HPI - Extremity Problem General Chief complaint: Extremity Problem,Nontraumatic Stated complaint: LT LEG PAIN Time Seen by Provider: 03/20/23 17:38 History of Present Illness HPI Narrative: Patient presents from home by private vehicle for evaluation of possible DVT. 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 Over the last several days she is noticed soreness behind her left knee and her doctor sent her to the ER for ultrasound to rule out DVT. Related Data Home Medications Medication Instructions Recorded Confirmed MULTIVITAMIN (Multivitamin 1 tab PO DAILY ##0 04/03/06 06/13/22 -) levothyroxine 112 mcg tablet 150 mcg PO QDAY ##0 04/11/16 06/13/22 hydrochlorothiazide 12.5 mg tablet 12.5 mg PO DAILY 06/11/22 06/13/22 tramadol 50 mg tablet 50 mg PO Q6H PRN Pain 06/11/22 06/11/22 Allergies Allergy/AdvReac Type Severity Reaction Status Date / Time Penicillins [PENICILLINS] Allergy Severe STOPS Verified 06/13/22 13:54 BREATHING Review of Systems Review of Systems Narrative: CONSTITUTIONAL- Denies: fever, chills, fatigue HEENT- Denies: sore throat, nosebleed, vision changes RESPIRATORY- Denies: shortness of breath, cough, wheezing CARDIAC- Denies: chest pain, edema, orthopnea GI- Denies: abdominal pain, nausea, vomiting, constipation, diarrhea - Denies: frequency, dysuria, hematuria, flank pain MSK-reports: Left lower extremity pain Denies: extremity swelling, joint pain, joint swelling SKIN- Denies: rash, itching, burn, swelling NEUROLOGICAL- Denies: headache, numbness, weakness, dizziness PSYCHIATRIC- Denies: anxiety, depression, suicidal ideation, homicidal ideation Patient History Medical History (Updated 03/20/23 @ 17:42 by Magaly Still MD) Diabetes Hernia HTN (hypertension) Hypothyroid Social History (Updated 08/07/18 @ 10:44 by Magaly Yanez DO) details: Lives on [facility], primary caregiver [facility] household members: none Smoking Status: Never smoker alcohol intake: current Smoking Status: Never smoker alcohol intake frequency: holidays/special occasions only Substance Use Type: does not use Exam Initial Vital Signs Initial Vital Signs: Vital Signs Temperature 98.4 F 09/29/23 16:09 Pulse Rate 66 03/20/23 16:09 Respiratory Rate 16 03/20/23 16:09 Blood Pressure 125/69 03/20/23 16:09 Pulse Oximetry 97 03/20/23 16:09 Oxygen Delivery Method Room Air 03/20/23 16:09 Const: Awake, alert, no acute distress, nontoxic appearing Eyes: PERRL, EOMI, conjunctiva normal ENT: Atraumatic, dentition normal, mucous membranes moist Cardiac: regular rate, regular rhythm RESP: unlabored, clear bilaterally, no wheezing GI: Atraumatic, soft, nontender, nondistended, no rebound, no guarding MSK: Atraumatic, full range of motion, pulses equal, tenderness to deep palpation behind left knee, no swelling Skin: Warm, Dry, intact, no rashes Neuro: AO x3, CN II-XII grossly intact, moves all extremities Psych: affect normal, mood normal, not suicidal, not homicidal Course Course Course Narrative: Leg pain. Negative for DVT. PCP follow up advised. Orders Ordered: ED Orders 03/20/23 16:14 US periph venous low extrem lt Stat Vital Signs Vital signs: Vital Signs - 8 hr 03/20/23 16:09 03/20/23 17:39 03/20/23 17:42 Temperature 98.4 F 98.1 F Pulse Rate 66 73 Pulse Rate [Left Posterior Tibial] 70 Respiratory Rate 16 16 Blood Pressure 125/69 122/72 Pulse Oximetry 97 98 Oxygen Delivery Method Room Air Room Air Discharge Plan Departure Patient Disposition: Home Clinical Impression: Leg pain, left Instructions: DI for Leg Pain Prescriptions: No Action MULTIVITAMIN (Multivitamin -) 1 tab PO DAILY Qty: 0 levothyroxine 112 MCG tablet 150 mcg PO QDAY Qty: 0 tramadol 50 mg Tablet 50 mg PO Q6H PRN (Reason: Pain) hydrochlorothiazide 12.5 mg Tablet 12.5 mg PO DAILY Referrals: Daniel Kwok MD [Primary Care Provider] - Stand Alone Forms: Patient Portal/API
[2023-03-20 17:42] VITALS: BP 122/72; PULSE 73; RESP 16; TEMP 36.7; O2SAT 98
== END 2023-03-20 17:45 | disposition home or self-care (01) ==
PROVIDERS: Emergency Provider Emergency Medicine; Family Provider Family Medicine; PCP Family Medicine
DX: M79.605 Pain in left leg (principal)
CPT/HCPCS: 93971; 99281; 99283

== ENCOUNTER → 2023-10-08 08:40 | Outpatient (CLI) | payer MEDICARE, OTHER, SELFPAY ==
--- NOTE | 2023-10-08 | DI.CT.S_ITS ---
PROCEDURE: CT ABDOMEN PELVIS W CON INDICATIONS: left lower quadrant pain TECHNIQUE: After the administration of intravenous contrast, axial sections acquired from the lung bases to the pubic symphysis. Coronal and sagittal reformats were performed. For radiation dose reduction, the following was used: automated exposure control, adjustment of mA and/or kV according to patient size. COMPARISON: None. FINDINGS: Image quality: Diagnostic. Lower Chest: A 9 mm pulmonary nodule is present at the posterior right lung base (series 5/image 14). The lung bases are otherwise clear. ABDOMEN: Liver: No solid mass. Gallbladder: No radiopaque gallstones or wall thickening. Biliary ducts: No biliary dilation. Pancreas: No ductal dilation. Spleen: Size is within normal limits. Adrenal Glands: No adrenal nodules. Kidneys and Ureters: No hydronephrosis. No solid mass. No complex renal cystic lesion which requires follow up. Stomach and Bowel: Normal colonic caliber, without significant wall thickening. The appendix is thin walled and gas filled. Peritoneum: No abnormal intraperitoneal fluid. No free air. Ventral Wall: No significant ventral hernia. Abdominal Nodes: No retroperitoneal or mesenteric adenopathy by size criteria. Vessels: Aorta and inferior vena cava are normal in size. PELVIS: Pelvic Organs: Unremarkable. Bladder: No bladder wall thickening, accounting for underdistention. Pelvic Nodes: No enlarged lymph nodes. Miscellaneous: There is a moderate-sized fat containing left inguinal hernia. Bones: No aggressive osseous abnormality. IMPRESSION: 1. No acute intra-abdominal findings. Normal appendix. 2. Moderate-sized left fat containing inguinal hernia. It is unclear whether this may be the etiology of the patient's left lower quadrant pain. Dictated by: Yue Guevara M.D. on 10/08/2023 at 13:58 Approved by: Yue Guevara M.D. on 10/08/2023 at 14:04
--- NOTE | 2023-10-08 | DI.ECHO.S_ITS ---
[place] [facility] : : [id number] : : [place] : : [id number] : : Phone: [phone] Echocardiogram Report + + :Name: NATHANIEL RODRIGUEZ Study Date: 10/08/2023 Height: 63 in : :[facility] ReadingLocation: Weight: 157 lb : : Gender: Female BSA: 1.7 m2 : :: 1950 Age: 73 yrs BP: 154/94 mmHg: :Reason For Study: CARDIAC MURMUR : :Ordering Physician: EITAN, : :HERBERT Dillard Performed By: Tashia Jha : :Referring: HERBERT LAIRD : + + Interpretation Summary The ejection fraction is estimated to be 50-55%. There are no obvious focal wall motion abnormalities noted but poor endocardial definition reduces the sensitivity for the detection of such. There is mild mitral regurgitation. There is mild tricuspid regurgitation. The right ventricular systolic pressure is estimated to be at least 22 mmHg based on an estimated right atrial pressure of 3 mm Hg. Procedure: A two-dimensional transthoracic echocardiogram with color flow and Doppler was performed. The study quality was technically adequate. There is no prior echocardiogram noted for this patient. The patient was in sinus bradycardia with heart rates between 44-57 bpm during the exam. Left Ventricle: The left ventricle is normal in size and wall thickness. A false chord is noted (normal variant). The ejection fraction is estimated to be 50-55%. There are no obvious focal wall motion abnormalities noted but poor endocardial definition reduces the sensitivity for the detection of such. Right Ventricle: The right ventricle is normal in size and function. Atria: The left atrium is mildly dilated. Right atrial size is normal. There is no Doppler evidence for an interatrial shunt. Mitral Valve: The mitral valve leaflets appear mildly thickened, but open well. There is mild mitral annular calcification. There is mild mitral regurgitation. Aortic Valve: The aortic valve is trileaflet. There is no aortic valve stenosis. There is trace aortic regurgitation. Tricuspid Valve: The tricuspid valve is normal in structure and function. There is mild tricuspid regurgitation. The right ventricular systolic pressure is estimated to be at least 22 mmHg based on an estimated right atrial pressure of 3 mm Hg. Pulmonic Valve: The pulmonic valve leaflets are thin and pliable; valve motion is normal. There is mild pulmonic regurgitation. Great Vessels: The aortic root is normal size. The dimensions of the ascending aorta are normal. The IVC is of normal diameter and collapses greater than 50% with a sniff. This suggests a low right atrial pressure of 3 mm Hg. Pericardium/ Pleura There is no pericardial effusion. There is no pleural effusion. MMode/2D Measurements & Calculations LVIDd: 5.8 cm LVOT diam: 2.0 cm LVIDs: 4.1 cm Ao root diam: 3.4 cm FS: 29.1 % asc Aorta Diam: 3.5 cm EPSS: 1.1 cm Ao Arch Diam (Prox Trans): 2.7 cm IVSd: 0.94 cm LVPWd: 0.88 cm LV mensah. diameter/BSA (cm/m^2): 3.3 LV sys. diameter/BSA (cm/m^2): 2.4 LA A2 area: 20.0 cm2 RA long axis: 4.7 cm LA A4 area: 18.3 cm2 RA area: 17.7 cm2 LA length (vol): 4.9 cm RA vol: 56.5 ml LA vol: 62.7 ml RA : 32.4 ml/m2 LA vol index: 36.0 ml/m2 IVC diam: 1.5 cm RVD1 (basal): 3.7 cm RVD2 (mid): 3.1 cm TAPSE: 2.4 cm Doppler Measurements & Calculations Ao V2 max: 185.1 cm/sec LVOT Max Surendra: 75.1 cm/sec Ao V2 mean: 131.3 cm/sec LV V1 max P.3 mmHg Ao max P.7 mmHg LV V1 VTI: 17.5 cm Ao mean P.5 mmHg ELIZABETH(I,D): 1.3 cm2 Ao V2 VTI: 44.0 cm ELIZABETH(V,D): 1.3 cm2 sev ratio: 0.40 ELIZABETH indexed to BSA (cm^2/m^2): 0.74 MV E max surendra: 71.2 cm/sec TR max surendra: 219.7 cm/sec MV A max surendra: 60.1 cm/sec TR max P.3 mmHg MV E/A: 1.2 PA V2 max: 93.4 cm/sec Med Peak E' Surendra: 6.5 cm/sec PA V2 mean: 65.6 cm/sec E/E' med: 10.9 PA mean P.9 mmHg Lat Peak E' Surendra: 5.1 cm/sec PA pr(Accel): 37.9 mmHg E/E' lat: 13.9 E/e' average: 12.4 MV dec time: 0.22 sec SV(LVOT): 57.0 ml Reading Physician:04:50 PM
--- NOTE | 2023-10-08 | DI.MG.S_ITS ---
BILATERAL DIGITAL SCREENING MAMMOGRAM 3D/2D WITH CAD: 10/08/2023 CLINICAL: Routine screening. Family history of breast cancer. Comparison is made to exam dated: 09/24/2022 mammogram - [facility]. There are scattered areas of fibroglandular density in both breasts (category b / 25%-50% glandular tissue). Current study was also evaluated with a Computer Aided Detection (CAD) system. No significant masses, calcifications, or other findings are seen in either breast. There has been no significant interval change. IMPRESSION: NEGATIVE There is no mammographic evidence of malignancy. A 1 year screening mammogram is recommended. Based on the Tyrer Cuzick model (a risk assessment model) the patient's lifetime risk is 4.8% and her 10 year risk is 4.3%. According to the ACR, ACS, and NCCN guidelines, an annual breast MRI exam along with mammogram is recommended if the patient's lifetime risk is 20% or greater. This exam was interpreted at Station ID: [id number]. NOTE: For mammograms, a report in lay terms will be sent to the patient. Approximately 15% of breast malignancies will not be visualized mammographically. In the management of a palpable breast mass, a negative mammogram must not discourage biopsy of a clinically suspicious lesion. Electronically Signed By: Rama Mays M.D., Ph.D. milind/rebekah:10/08/2023 22:32:16 letter sent: Normal Exam ACR BI-RADS Category 1: Negative [id number]
[2023-10-08 09:15] LABS: Estimated Glomerular Filt Rate > 60 mL/min (>60)
== END ==
LOC: ECHO 08:41
PROVIDERS: Radiology Diagnostic Radiology; Family Provider Family Medicine; PCP Family Medicine; Referring Provider Family Medicine; Visit Provider Family Medicine
DX: Z12.31 Encounter for screening mammogram for malignant neoplasm of breast (principal); Z80.3 Family history of malignant neoplasm of breast; R92.323 Mammographic fibroglandular density, bilateral breasts; I08.1 Rheumatic disorders of both mitral and tricuspid valves; K40.90 Unilateral inguinal hernia, without obstruction or gangrene, not specified as recurrent; R91.1 Solitary pulmonary nodule; R10.32 Left lower quadrant pain; R01.1 Cardiac murmur, unspecified
CPT/HCPCS: 36415; 74177; 77063; 77067; 82565; 93306; Q9967

== ENCOUNTER → 2023-12-10 13:57 | Outpatient (CLI) | payer MEDICARE, OTHER, SELFPAY ==
--- NOTE | 2023-12-10 13:58 | DI.RAD.S_ITS ---
PROCEDURE: XR DEXA AXIAL SKELETON INDICATIONS: POSTMENOPAUSAL OSTEOPENIA COMPARISON: [facility], CR, XR DEXA AXIAL SKELETON, 09/24/2022, 12:44. FINDINGS: Lumbar Spine: Bone mineral density 0.592 g/cm2, T score -0.9. Since the most recent prior study, there has been no statistically significant change in bone mineral density. Left Hip: Bone mineral density 0.796 g/cm2, T score -1.2. Prior DEXA was performed using dissimilar scan type or analysis method. Left Femoral Neck: Bone mineral density 0.682 g/cm2, T score -1.5. Right Hip: Bone mineral density 0.808 g/cm2, T score -1.1. Prior DEXA was performed using dissimilar scan type or analysis method. Right Femoral Neck: Bone mineral density 0.7 x 4 g/cm2, T score -0.9. Fracture Risk Calculation (when applicable): 10-year fracture risk of a major osteoporotic fracture 11 % and of a hip fracture 2.1 % (T score greater or equal to -1.0 to: NORMAL) (T score from -1.1 to -2.4: OSTEOPENIA) (T score less than or equal to -2.5: OSTEOPOROSIS) IMPRESSION: 1. By WHO criteria, patient has osteopenia. 2. 10-year fracture risk of a major osteoporotic fracture 11% and of a hip fracture 2.1% Follow-up guidelines as follows: Osteoporosis: Consider a repeat DEXA and Vertebral Fracture Assessment (VFA) exam in 2 years or sooner if medically necessary, to reassess this patient's status. Osteopenia: Consider a repeat DEXA in 2-3 years to reassess this patient's status, or if there is a new clinical indication. Normal: Consider a repeat DEXA in 5 years or sooner, or if there is a new clinical indication. All treatment decisions require clinical judgment and consideration of individual patient factors, including patient preferences, comorbidities, previous drug use, risk factors not captured in the FRAX model (e.g., frailty, falls, vitamin D deficiency, increased bone turnover, interval significant decline in bone density ) and possible under- or over-estimation of fracture risk by FRAX. In addition, the NOF Guide recommends that FDA-approved medical therapies be considered in postmenopausal women and men age >= 50 years with a: * Hip or vertebral (clinical or morphometric) fracture * T-score of <=-2.5 at the spine or hip * Ten-year fracture probability by FRAX of >= 3% for hip fracture or >=20% for major osteoporotic fracture. People with diagnosed cases of osteoporosis or at high risk for fracture should have regular bone mineral density tests. For patients eligible for Medicare, routine testing is allowed once every 2 years. The testing frequency can be increased to one year for patients who have rapidly progressing disease, those who are receiving or discontinuing medical therapy to restore bone mass, or have additional risk factors. Approved by: Harris De La Torre M.D. on 12/10/2023 at 21:28
== END ==
PROVIDERS: Family Provider Family Medicine; PCP Family Medicine; Referring Provider Family Medicine; Visit Provider Family Medicine
DX: M85.89 Other specified disorders of bone density and structure, multiple sites (principal)
CPT/HCPCS: 77080

== ENCOUNTER → 2024-01-13 09:27 | Outpatient (CLI) | payer MEDICARE, OTHER, SELFPAY ==
--- NOTE | 2024-01-13 09:39 | DI.CT.S_ITS ---
PROCEDURE: CT CHEST WO CON INDICATIONS: Solitary pulmonary nodule TECHNIQUE: Noncontrast 2.0-2.5 mm thick sections acquired from the pulmonary apices to the posterior costophrenic angles. 7 mm thick axial MIP and 5 mm coronal and sagittal reformats were then acquired. For radiation dose reduction, the following was used: automated exposure control, adjustment of mA and/or kV according to patient size. COMPARISON: CT abdomen pelvis on 10/08/2023. FINDINGS: Image quality: Diagnostic. Lower Neck: No enlarged lymph nodes. Thyroid: No thyroid nodule. Axillae: No enlarged lymph nodes. Chest Wall: Unremarkable. Bones: Remote bilateral lateral 10th rib fractures. Several anterior bridging disc osteophytes within the midthoracic spine. Lungs and Pleura: No pneumothorax or pleural effusions. There is a solid based oval lesion in the left lower lobe that abuts the pleura. It currently measures 1.2 times 0.7 cm, compared to 1.1 x 0.8 cm. There is a 0.9 cm ground-glass irregular-appearing nodule within the inferior lateral left upper lobe. There is atelectasis along the dependent portions of the lower lungs. There are multiple areas of mucous plugging. There is suggestion for central lobular emphysema. Heart: Heart size is normal. No pericardial effusion. Thoracic Vessels: The aorta and pulmonary arteries demonstrate normal size. There are thick coronary artery calcifications and small amount of calcifications within the abdominal aorta. Mediastinum and Roro: No enlarged lymph nodes. Esophagus: No wall thickening. No hiatal hernia. Upper Abdomen: Visualized upper abdomen solid organs and bowel loops appear normal. IMPRESSION: 1. No significant interval change in an oval solid 1.2 x 0.7 cm pulmonary nodule within the posterior right lower lobe. There is a 0.9 cm ground-glass irregular appearing pulmonary nodule within the inferior lateral left upper lobe. 2. There are multiple areas of mucous plugging. Clinically correlate for small airways disease. 3. Thick coronary artery calcifications. Fleischner Society criteria for SOLID lung nodule followup. Nodule size (mm)Low-risk patientHigh-risk patient<6 (single or multiple)No routine followup.Optional CT at 12 months. 6-8 (single or multiple)CT at 6-12 months, then optional CT at 18-24 mo.CT at 6-12 months, then CT at 18-24 months. >8 (single)CT at 3 months, PET-CT, or biopsy. Same as for low-risk pts. >8 (multiple)CT at 3-6 months, then optional CT at 18-24 mo.CT at 3-6 months, then CT at 18-24 months. Fleischner Society criteria for SUB-SOLID lung nodule followup. Solitary pure ground-glass nodules<6 mm (ground glass or part solid)No followup needed. 6 mm or larger (ground glass)CT at 6-12 months to confirm persistence, then CT every 2 years until 5 years.6 mm or larger (part solid)CT at 3-6 months to confirm persistence, then annual CT until 5 years if unchanged and solid component remains <6 mm. Multiple sub-solid nodules<6 mmCT at 3-6 months, then CT consider at 2 & 4 years for high risk patients. [address] at 3-6 months. Subsequent management based on most suspicious lesions. Recommendations do not apply to lung cancer screening, patients with immunosuppression, or patients with known primary cancer. Dictated by: Gokul Pearce M.D. on 01/13/2024 at 13:14 Approved by: Gokul Pearce M.D. on 01/13/2024 at 13:53
== END ==
PROVIDERS: Family Provider Family Medicine; PCP Family Medicine; Referring Provider Family Medicine; Visit Provider Family Medicine
DX: R91.8 Other nonspecific abnormal finding of lung field (principal); I25.10 Atherosclerotic heart disease of native coronary artery without angina pectoris
CPT/HCPCS: 71250

== ENCOUNTER → 2024-11-02 08:58 | Outpatient (CLI) | payer MEDICARE, OTHER, SELFPAY ==
--- NOTE | 2024-11-02 09:02 | DI.MG.S_ITS ---
MM screening mammo BI: 11/02/2024. BI-RADS: 2 CLINICAL: 74-year old female for bilateral screening mammogram. Tyrer-Cuzick lifetime risk of 8.3%. Current reported family history of breast cancer: mother. PRIOR EXAMS 10/08/2023, 09/24/2022. MAMMOGRAPHY TECHNIQUE: 2D and 3D (tomosynthesis) digital mammographic views obtained, with additional images as needed for full coverage. Current study was also evaluated with a Computer Aided Detection (CAD) system. DENSITY B. There are scattered areas of fibroglandular density. MAMMOGRAPHY FINDINGS Bilateral: Typically-benign vascular calcifications noted. No significant change from comparison. IMPRESSION: * No evidence of malignancy with benign findings. RECOMMENDATIONS Bilateral * Annual screening mammography. OVERALL ASSESSMENT CATEGORY BI-RADS-2: Benign. The [employer] recommends annual screening mammography beginning at age 40 for women with average risk of breast cancer. ELECTRONICALLY SIGNED: Lori Agustin M.D. on 11/02/2024 at 03:17:20 PM PT Interpreting Station ID: [id number]
== END ==
LOC: MAMMO 09:00
PROVIDERS: Family Provider Family Medicine; PCP Family Medicine; Referring Provider Family Medicine; Visit Provider Family Medicine
DX: Z12.31 Encounter for screening mammogram for malignant neoplasm of breast (principal); R92.1 Mammographic calcification found on diagnostic imaging of breast; R92.333 Mammographic heterogeneous density, bilateral breasts
CPT/HCPCS: 77063; 77067

== ENCOUNTER → 2025-01-31 09:37 | Outpatient (CLI) | payer MEDICARE, OTHER, SELFPAY ==
--- NOTE | 2025-01-31 09:38 | DI.CT.S_ITS ---
PROCEDURE: CT CHEST WO CON INDICATIONS: NODULE TECHNIQUE: Noncontrast 5 mm thick sections acquired from the pulmonary apices to the posterior costophrenic angles. 1 mm lung window, 5 mm thick coronal and sagittal and 7 mm axial MIP reformats were then acquired. For radiation dose reduction, the following was used: automated exposure control, adjustment of mA and/or kV according to patient size. COMPARISON: [facility], CT, CT CHEST WO CON, 01/13/2024, 9:44. FINDINGS: Image quality: Diagnostic. Lower Neck: No enlarged lymph nodes. Thyroid: Low attenuation. Axillae: No enlarged lymph nodes. Chest Wall: Unremarkable. Bones: Unremarkable. Lungs and Pleura: Trace tree-in-bud nodules in the medial left lower lobe. Stable 1.2 x 0.8 cm nodule in the right lower lobe. Heart: Heart size is enlarged, with annular calcification of the mitral valve and moderate LAD calcifications. No pericardial effusion. Thoracic Vessels: The aorta and pulmonary arteries demonstrate normal size. Mediastinum and Roro: No enlarged lymph nodes. Esophagus: No wall thickening. No hiatal hernia. Upper Abdomen: Visualized upper abdomen solid organs and bowel loops appear normal. IMPRESSION: Stable 1.2 x 0.8 cm nodule in the right lower lobe compared with 10/08/2023. This is likely benign. Additional follow-up in 1 year can be considered. Trace tree-in-bud nodules in the medial left lower lobe, likely mild infectious/inflammatory bronchiolitis. Trace aspiration is also consideration . Low attenuation of the thyroid, which may indicate thyroiditis. Correlate with thyroid panel . Dictated by: Clive Vazquez M.D. on 01/31/2025 at 14:25 Approved by: Clive Vazquez M.D. on 01/31/2025 at 14:30
== END ==
PROVIDERS: Family Provider Family Medicine; PCP Family Medicine; Referring Provider Family Medicine; Visit Provider Family Medicine
DX: R91.1 Solitary pulmonary nodule (principal); R91.8 Other nonspecific abnormal finding of lung field
CPT/HCPCS: 71250

== ENCOUNTER → 2025-01-31 09:39 | Outpatient (CLI) | payer MEDICARE, OTHER, SELFPAY ==
--- NOTE | 2025-01-31 09:42 | DI.MRI.S_ITS ---
PROCEDURE: MR HEAD/BRAIN WO CON INDICATIONS: OTHER AMNESA TECHNIQUE: Non-contrast axial T1 spin echo, axial T2 fast spin echo, sagittal and axial FLAIR, coronal T2 fast spin echo, axial gradient echo, axial diffusion and ADC through the brain. COMPARISON: None. FINDINGS: Image quality: Excellent. CSF spaces: Ventricles appear symmetric in size and shape. Basal cisterns are patent. No extra-axial fluid collections. Brain: No intracranial bleeds or mass effects. There is mild cerebral volume loss for age. There are minimal periventricular and deep white matter chronic small vessel ischemic changes. Brainstem appears normal. Diffusion-weighted images show no acute infarct. No chronic ischemic insults. Normal intravascular flow voids are present. Skull and face: Calvarial bone marrow is normal in signal. Orbits are normal. Sinuses: Sinuses and mastoids are clear. IMPRESSION: No acute intracranial disease process. Dictated by: Riya Chavez MD, PhD on 01/31/2025 at 12:58 Approved by: Riya Chavez MD, PhD on 01/31/2025 at 13:02
== END ==
PROVIDERS: Family Provider Family Medicine; PCP Family Medicine; Referring Provider Family Medicine; Visit Provider Family Medicine
DX: R41.3 Other amnesia (principal); R91.1 Solitary pulmonary nodule; R91.8 Other nonspecific abnormal finding of lung field
CPT/HCPCS: 70551; 71250